=== PATIENT | male | born 1975 | race African-American/Black ===

== ENCOUNTER 2016-11-18 10:31 | Day surgery (SDC) | payer OTHER ==
[2016-11-17 13:42] VITALS: BMI 24.9
[2016-11-18] VITALS (10 sets, daily range): BP systolic 114–195; BP diastolic 75–99; PULSE 67–89; RESP 12–19; Ht 167.6 cm; Wt 62.9 kg
[~2016-11-18] VITALS: Ht 167.6 cm; Wt 62.9 kg
[~2016-11-18 10:31] MED LIST: BALANCED SALT SOLN 15 ML OPH IRRIG ONE; DIPHENHYDRAMINE 50 MG INJ IV PRN; FENTAnyl 50 MCG/ML VIAL IV PRN; HYDROmorphONE (0.2 MG/ML) 10ML SYG IV PRN; KETOROLAC 30 MG INJ IV ONE; MEPERIDINE 25 MG INJ IV PRN; METOCLOPRAMIDE 10 MG INJ IV PRN; ONDANSETRON 4 MG INJ IV PRN; OXYCODONE/ACETAMINOPHEN (5/325) TAB PO PRN; PROCHLORPERAZINE 10 MG INJ IV PRN; TETRACAINE 0.5% 15 ML OPH RIGHT EYE ONE
[2016-11-18] MEDS ORDERED: MOXIFLOXACIN 0.5% 3 ML OPH RIGHT EYE SCH (11:00)
[2016-11-18] MEDS ORDERED: DICLOFENAC 0.1% 2.5 ML OPH RIGHT EYE ONE (11:00)
[2016-11-18] MEDS ORDERED: LIDOCAINE 3.5% GEL TUBE OPER ONE (11:30)
--- NOTE | 2016-11-18 12:06 | HPN ---
Date/Time of Note Date/Time of Note DATE: 11/18/16 TIME: 12:06 Interval H&P Admission Note Pt. seen H&P reviewed: No system changes BRAD JUSTICE D.O. Nov 18, 2016 12:06
[2016-11-18] MEDS ORDERED: LIDOCAINE 2%/EPI 30 ML INJ ONE (12:46)
[2016-11-18] MEDS ORDERED: FENTAnyl 50 MCG/ML VIAL ONE (12:52)
[2016-11-18] MEDS ORDERED: PROPOFOL 20 ML ONE (12:52)
[2016-11-18] MEDS ORDERED: LIDOCAINE 2% (SDV) 5 ML INJ ONE (12:52)
[2016-11-18] MEDS ORDERED: MIDAZOLAM 1 MG/ML 2 ML INJ ONE ×2 (12:52→13:26)
[2016-11-18] MEDS ORDERED: CEFAZOLIN 1 GM INJ ONE (13:10)
[2016-11-18] MEDS ORDERED: TETRACAINE 0.5% 15 ML OPH ONE (13:10)
[2016-11-18] MEDS ORDERED: ONDANSETRON 4 MG INJ ONE (13:28)
[2016-11-18] MEDS ORDERED: TOBRAMYCIN/DEXAMETH 3.5 GM OPH OINT ONE (13:32)
[2016-11-18] MEDS ORDERED: TOBRAMYCIN/DEXAMETH 3.5 GM OPH OINT RIGHT EYE ONE (21:00)
--- NOTE | 2016-11-19 14:03 | OPR ---
DATE OF OPERATION: 11/18/2016 PREOPERATIVE DIAGNOSIS: Malignant neoplasm, right lower lid. POSTOPERATIVE DIAGNOSIS: Neoplasm, right lower lid. PROCEDURE PLANNED: Removal of malignant neoplasm, right lower lid. PROCEDURE PERFORMED: Removal of neoplasm, right lower lid. SURGEON: Nati Spain DO ANESTHESIOLOGIST: Dr. Mejía ANESTHESIA: MAC. CONSENT: The patient was explained all possible outcomes of his condition. The patient understood that complications of removal suspicious neoplasm include but not limited to infection, bleeding, scar formation, recurrence, loss of vision, loss of the eye as an organ. The patient understood and signed consent and it can be found in his chart. DESCRIPTION OF PROCEDURE: The patient was brought to the operating room in stable condition, placed on the operating table in supine position and his right eye was prepped for surgery in routine sterile technique. Then, lidocaine 4% with epinephrine was injected subconjunctivally in the lower right eyelid. The neoplasm was about 1.5 cm and had multilobular.. It was soft and fragile. Tangirnaq knife used to remove and excise the neoplasm from underlying tissue and hemostasis achieved by catheterization with Tangirnaq catheter. Then, TobraDex ointment was instilled in the low conjunctival sac and the eyelid was closed and a patch was placed over closed eyelid. During the procedure, the patient was really anxious and poorly controllable, and seed analysis laboratory assistant had to hold his head in order to perform the procedure. Eventually, the patient was transferred to the recovery room in stable condition. Dictated By: NATI HART/YOSELIN Conf#: [id number] DID#: [id number] MTDD
== END 2016-11-18 21:38 | disposition home or self-care (01) ==
LOC: SDS 10:31
PROVIDERS: ATTEND Ophthalmology
DX: C44.102 Unspecified malignant neoplasm of skin of right eyelid, including canthus (principal); I10 Essential (primary) hypertension; F17.210 Nicotine dependence, cigarettes, uncomplicated
CPT/HCPCS: 67840; 88305; J0690; J2250; J2405; J3010; Z7512; Z7610